=== PATIENT | male | born 1985 | race Hispanic/Latino ===

== ENCOUNTER 2022-01-15 12:47 | Inpatient (IN) | payer OTHER ==
--- NOTE | 2022-01-15 12:49 | ERPHSYRPT ---
- History of Present Illness Time Seen by Provider: 01/15/22 12:49 Historian: patient Exam Limitations: no limitations Physician History: This is a 36-year-old male who is had no prior abdominal surgeries and presents with abdominal pain. It is generalized but worse in the bilateral upper quadrants. He did vomit this morning. Patient states that he has had a history of pancreatitis in the past. Although he is on some medication to help him stop drinking alcohol, he did state that he had "2 beers a couple days ago". Patient does not recall the name of a doctor that he had seen in [facility] but he does state that he was traveling from his home in [facility] to [facility] to go to the emergency department. However, when he told his wildlife conservation officer, who he was supposed to meet with today, that he was having abdominal pain, he was told to come to the emergency department so he came to the closest emergency facility. He denies chest pain. He denies shortness of breath. Timing/Duration: week(s), intermittent, worse Quality: aching, pressure Abdominal Pain Onset Location: RUQ, LUQ, epigastric, generalized abdomen Pain Radiation: no radiation Severity of Pain-Max: moderate Severity of Pain-Current: moderate Modifying Factors: Improves With: vomiting Associated Symptoms: nausea, vomiting, No chest pain, No shortness of breath Previous symptoms: same symptoms as today Allergies/Adverse Reactions: No Known Drug Allergies Allergy (Verified 01/15/22 13:05) Home Medications: Acamprosate Calcium 333 mg PO DAILY 01/15/22 [History] Folic Acid 1 mg [Folate 1 mg] 1 mg PO DAILY 01/15/22 [History] Lansoprazole 15 mg PO BID 01/15/22 [History] dilTIAZem HCL [Tiadylt ER] 180 mg PO DAILY 01/15/22 [History] Travel Risk - International Travel Have you traveled outside of the country in past 3 weeks: No - Coronavirus Screening Are you exhibiting any of the following symptoms?: No Close contact with a COVID-19 positive Pt in past 14-21 Days: No - Review of Systems Constitutional: No Symptoms Eyes: No Symptoms Ears, Nose, & Throat: No Symptoms Respiratory: No Symptoms Cardiac: No Symptoms Abdominal/Gastrointestinal: Abdominal Pain, Nausea, Vomiting, No Diarrhea, No Constipation Genitourinary Symptoms: No Symptoms Musculoskeletal: No Symptoms Skin: No Symptoms Neurological: No Symptoms Psychological: No Symptoms Endocrine: No Symptoms Hematologic/Lymphatic: No Symptoms Immunological/Allergic: No Symptoms All Other Systems: Reviewed and Negative - Past Medical History Pertinent Past Medical History: Yes - Nursing Vital Signs Nursing Vital Signs: Initial Vital Signs Temperature 99.4 F 01/15/22 12:54 Pulse Rate 88 01/15/22 12:54 Respiratory Rate 18 01/15/22 12:54 Blood Pressure 179/121 01/15/22 12:54 O2 Sat by Pulse Oximetry 99 01/15/22 12:54 Pain Scale Pain Intensity 6 - Physical Exam General Appearance: no apparent distress, alert, anxiety Eye Exam: PERRL/EOMI, eyes nml inspection Ears, Nose, Throat Exam: normal ENT inspection, moist mucous membranes Neck Exam: normal inspection, non-tender, supple, full range of motion Respiratory Exam: normal breath sounds, lungs clear, airway intact, No chest tenderness, No respiratory distress Cardiovascular Exam: regular rate/rhythm, normal heart sounds, normal peripheral pulses Gastrointestinal/Abdomen Exam: soft, normal bowel sounds, tenderness (Mild and diffuse with palpation), guarding (Mild and diffuse with palpation), No rebound Rectal Exam: not done Back Exam: normal inspection, normal range of motion, No CVA tenderness, No vert ebral tenderness Extremity Exam: normal inspection, normal range of motion, pelvis stable Neurologic Exam: alert, oriented x 3, cooperative, resourcing consultant II-XII nml as tested, normal mood/affect, nml cerebellar function, nml station & gait, sensation nml Skin Exam: normal color, warm, dry Lymphatic Exam: No adenopathy SpO2 Interpretation: normal O2 Delivery: Room Air - Course Nursing assessment & vital signs reviewed: Yes EKG Interpreted by Me: RATE (80), Sinus Rhythm, NORMAL AXIS, NORMAL INTERVALS, NORMAL QRS, NORMAL ST-T, Other (No acute ischemic changes on today's EKG. No comparison EKG available.) Ordered Tests: Active Orders 24 hr Category Date Time Status Clean Catch Urine Specimen STAT Care 01/15/22 13:11 Active IV Insertion STAT Care 01/15/22 13:11 Active ABDOMEN AND PELVIS W/0 CONTRAS [CT] Stat Exams 01/15/22 13:11 Completed AMYLASE Stat Lab 01/15/22 13:20 Completed Alcohol [ETHYL ALCOHOL] Stat Lab 01/15/22 13:20 Completed CBC W DIFF Stat Lab 01/15/22 13:20 Completed CMP Stat Lab 01/15/22 13:20 Completed LIPASE Stat Lab 01/15/22 13:20 Completed Lactic Acid Stat Lab 01/15/22 13:18 Completed Urine Triage Profile Stat Lab 01/15/22 13:34 Completed Transfer Order Routine Transfer 01/15/22 Ordered Medication Summary Discontinued Medications Generic Name Dose Route Start Last Admin Trade Name Laura PRN Reason Stop Dose Admin Hydromorphone HCl 1 mg 01/15/22 13:11 01/15/22 13:36 Hydromorphone 1 Mg/1ml Inj 1 Mg/Ml Syringe IV 01/15/22 13:12 1 mg STAT ONE Administration Hydromorphone HCl Confirm 01/15/22 13:35 Hydromorphone 1 Mg/1ml Inj 1 Mg/Ml Syringe Administered 01/15/22 13:36 Dose 1 mg .ROUTE .STK-MED ONE Sodium Chloride 1,000 mls @ 999 mls/hr 01/15/22 13:11 01/15/22 14:41 Sodium Chloride 0.9% 1000 Ml IV 01/15/22 14:11 Infused .Q1H1M STA Infusion Sodium Chloride Confirm 01/15/22 13:26 Sodium Chloride 0.9% 1000 Ml Administered 01/15/22 13:27 Dose 1,000 mls @ ud .ROUTE .STK-MED ONE Ondansetron HCl 4 mg 01/15/22 13:11 01/15/22 13:35 Ondansetron Hcl 4 Mg/2 Ml Vial IV 01/15/22 13:12 4 mg STAT ONE Administration Ondansetron HCl Confirm 01/15/22 13:35 Ondansetron Hcl 4 Mg/2 Ml Vial Administered 01/15/22 13:36 Dose 4 mg .ROUTE .STK-MED ONE Lab/Rad Data: Laboratory Result Diagrams 01/15/22 13:20 01/15/22 13:20 Laboratory Results 01/15/22 01/15/22 01/15/22 Range/Units 13:34 13:20 13:20 WBC (4.0-10.5) K/mm3 RBC (4.1-5.6) M/mm3 Hgb (12.5-18.0) gm/dl Hct (42-50) % MCV (78-100) fl MCH (26-32) pg MCHC (32-36) g/dl RDW (11.5-14.0) % Plt Count (150-450) K/mm3 MPV (7.5-11.0) fl Gran % (36.0-66.0) % Eos # (Auto) (0-0.5) Absolute Lymphs (auto) (1.0-4.6) Absolute Monos (auto) (0.0-1.3) Lymphocytes % (24.0-44.0) % Monocytes % (0.0-12.0) % Eosinophils % (0.00-5.0) % Basophils % (0.0-0.4) % Absolute Granulocytes (1.4-6.9) Basophils # (0-0.4) Sodium 141 (137-145) mmol/L Potassium 3.6 (3.5-5.1) mmol/L Chloride 102 (98-107) mmol/L Carbon Dioxide 24 (22-30) mmol/L Anion Gap 17.7 H (5-15) MEQ/L BUN 8 L (9-20) mg/dL Creatinine 0.57 L (0.66-1.25) mg/dL Estimated GFR > 60.0 ML/MIN Glucose 107 H (74-106) mg/dL Lactic Acid (0.4-2.0) Calcium 8.6 (8.4-10.2) mg/dL Total Bilirubin 0.70 (0.2-1.3) mg/dL AST 69 H (17-59) U/L ALT 36 (0-50) U/L Alkaline Phosphatase 102 (38-126) U/L Serum Total Protein 7.7 (6.3-8.2) g/dL Albumin 4.3 (3.5-5.0) g/dL Amylase 119 H (30-110) U/L Lipase 1111 H (23-300) U/L Urine Opiates Level NEGATIVE (NEGATIVE) Ur Methadone NEGATIVE (NEGATIVE) Urine Barbiturates NEGATIVE (NEGATIVE) Ur Phencyclidine (PCP) NEGATIVE (NEGATIVE) Urine Amphetamine NEGATIVE (NEGATIVE) U Benzodiazepine Level NEGATIVE (NEGATIVE) Urine Cocaine NEGATIVE (NEGATIVE) Urine Marijuana (THC) POSITIVE (NEGATIVE) Ethyl Alcohol 215 H (0-10) mg/dL 01/15/22 01/15/22 Range/Units 13:20 13:18 WBC 6.4 (4.0-10.5) K/mm3 RBC 4.28 (4.1-5.6) M/mm3 Hgb 14.1 (12.5-18.0) gm/dl Hct 40.4 L (42-50) % MCV 94.4 (78-100) fl MCH 32.9 H (26-32) pg MCHC 34.9 (32-36) g/dl RDW 13.0 (11.5-14.0) % Plt Count 251 (150-450) K/mm3 MPV 9.9 (7.5-11.0) fl Gran % 61.7 (36.0-66.0) % Eos # (Auto) 0.03 (0-0.5) Absolute Lymphs (auto) 1.99 (1.0-4.6) Absolute Monos (auto) 0.40 (0.0-1.3) Lymphocytes % 31.0 (24.0-44.0) % Monocytes % 6.2 (0.0-12.0) % Eosinophils % 0.5 (0.00-5.0) % Basophils % 0.6 (0.0-0.4) % Absolute Granulocytes 3.95 (1.4-6.9) Basophils # 0.04 (0-0.4) Sodium (137-145) mmol/L Potassium (3.5-5.1) mmol/L Chloride (98-107) mmol/L Carbon Dioxide (22-30) mmol/L Anion Gap (5-15) MEQ/L BUN (9-20) mg/dL Creatinine (0.66-1.25) mg/dL Estimated GFR ML/MIN Glucose (74-106) mg/dL Lactic Acid 1.5 (0.4-2.0) Calcium (8.4-10.2) mg/dL Total Bilirubin (0.2-1.3) mg/dL AST (17-59) U/L ALT (0-50) U/L Alkaline Phosphatase (38-126) U/L Serum Total Protein (6.3-8.2) g/dL Albumin (3.5-5.0) g/dL Amylase (30-110) U/L Lipase (23-300) U/L Urine Opiates Level (NEGATIVE) Ur Methadone (NEGATIVE) Urine Barbiturates (NEGATIVE) Ur Phencyclidine (PCP) (NEGATIVE) Urine Amphetamine (NEGATIVE) U Benzodiazepine Level (NEGATIVE) Urine Cocaine (NEGATIVE) Urine Marijuana (THC) (NEGATIVE) Ethyl Alcohol (0-10) mg/dL - Progress Progress: improved, pain not gone completely, re-examined Progress Note: 01/15/22 15:06 CAT scan of the abdomen pelvis without contrast shows acute pancreatitis at the uncinate process. This may be recurrent versus residual. There is adjacent duodenal wall thickening. This is presumed to be reactive. Discussed with Dr.: Junie Counseled pt/family regarding: lab results, diagnosis, need for follow-up, rad results - Departure Departure Disposition: Observation Clinical Impression: Acute pancreatitis, Alcohol intoxication Condition: Stable Critical Care Time: No Referrals: JAZ MELLO [ACTIVE STAFF] - Follow up/PCP as directed
[2022-01-15] MEDS ORDERED: Zofran 4 MG/2 ML VIAL IV ONE (13:11)
[2022-01-15] MEDS ORDERED: Hydromorphone 1 mg/ml Injection IV ONE ×2 (13:11→16:21)
[2022-01-15] MEDS ORDERED: Sodium Chloride 0.9% 1000 ML 1,000 ML IV STA (13:11)
[2022-01-15] MEDS ORDERED: Sodium Chloride 0.9% 1000 ML 1,000 ML ONE (13:26)
[2022-01-15 13:35] LABS: Absolute Neutrophil Ct (ANC) 3.95 (1.4-6.9); Basophil (Absolute #) 0.04 (0-0.4); Eosinophil % 0.5 % (0.00-5.0); Eosinophil (Absolute #) 0.03 (0-0.5); Hematocrit 40.4 % (42-50); Hemoglobin 14.1 gm/dl (12.5-18.0); Lymphocyte (Absolute #) 1.99 (1.0-4.6); Mean Cell Volume 94.4 fl (78-100); Mean Corpuscular Hemoglobin 32.9 pg (26-32); Mean Corpuscular Hgb Concent. 34.9 g/dl (32-36); Mean Platelet Volume 9.9 fl (7.5-11.0); Monocytes % 6.2 % (0.0-12.0); Neutrophil % 61.7 % (36.0-66.0); Platelet Count 251 K/mm3 (150-450); Red Blood Count 4.28 M/mm3 (4.1-5.6); White Blood Count 6.4 K/mm3 (4.0-10.5)
[2022-01-15] MEDS ORDERED: Zofran 4 MG/2 ML VIAL ONE (13:35)
[2022-01-15] MEDS ORDERED: Hydromorphone 1 mg/ml Injection ONE ×2 (13:35→16:22)
[2022-01-15 13:45] LABS: ALBUMIN 4.3 g/dL (3.5-5.0); ALKALINE PHOSPHATASE 102 U/L (38-126); AMYLASE 119 U/L (30-110); ANION GAP 17.7 MEQ/L (5-15); BLOOD UREA NITROGEN 8 mg/dL (9-20); CHLORIDE 102 mmol/L (98-107); Calcium 8.6 mg/dL (8.4-10.2); Carbon Dioxide 24 mmol/L (22-30); Creatinine 1 0.57 mg/dL (0.66-1.25); EST GLOMERULAR FILTRATION RATE > 60.0 ML/MIN; Glucose 107 mg/dL (74-106); Potassium 3.6 mmol/L (3.5-5.1); SGOT/AST 69 U/L (17-59); SGPT/ALT 36 U/L (0-50); SODIUM 141 mmol/L (137-145); Total Protein 7.7 g/dL (6.3-8.2)
[2022-01-15 13:52] LABS: LIPASE 1111 U/L (23-300)
[2022-01-15 14:17] LABS: Barbiturate,Urine NEGATIVE (NEGATIVE); Benzodiazepine,Urine NEGATIVE (NEGATIVE); Cocaine,Urine NEGATIVE (NEGATIVE); Methadone,Urine NEGATIVE (NEGATIVE); Opiate,Urine NEGATIVE (NEGATIVE); PCP,Urine NEGATIVE (NEGATIVE); THC,Urine POSITIVE (NEGATIVE)
[2022-01-15 14:23] LABS: Amphetamine,Urine NEGATIVE (NEGATIVE)
--- NOTE | 2022-01-15 14:37 | XRAY ---
Indication: Abdomen pain and dysuria. Status post pancreatitis one month ago. Multiple contiguous axial images obtained through the abdomen and pelvis without contrast. Comparison: None Lung bases demonstrates minimal left base dependent atelectasis. Heart not enlarged. Noncontrasted stomach and bowel loops appear nonobstructed. Normal appearing appendix with tiny appendicolith near the base. No free fluid/air. Head and uncinate portion of the pancreas demonstrates moderate peripancreatic stranding favoring recurrent versus residual pancreatitis with tiny free fluid. Lesser degree pancreatitis seen of the remaining pancreas. Adjacent descending duodenal wall thickening presumed reactive. No free air. Remaining liver, gallbladder, spleen, adrenal glands, kidneys, ureters, bladder, and aorta are unremarkable for noncontrast exam. Osseous structures intact. Impression: 1. Pancreatitis as detailed with tiny free fluid. Adjacent duodenal wall thickening presumed reactive. 2. Incidental appendicolith without appendicitis.
[2022-01-15 15:44] LABS: Bacteria RARE /HPF (NEGATIVE)
[2022-01-15 15:49] LABS: Appearance CLEAR (CLEAR); Bilirubin NEGATIVE (NEGATIVE); Glucose NEGATIVE (NEGATIVE); Ketones NEGATIVE (NEGATIVE); Nitrite NEGATIVE (NEGATIVE); Protein,Urine Dip NEGATIVE (Negative); RBC NEGATIVE Ery/ul (0-5); Urine Cultured Indicated? NO; Urobilinogen 0.2 mg/dL (0-1)
[2022-01-15 15:54] LABS: Dipstick done @ ? MAIN LAB
[2022-01-15 16:35] LABS: INFLUENZA A NEGATIVE (NEGATIVE); INFLUENZA B NEGATIVE (NEGATIVE); RESPIRATORY SYNCTIAL VIRUS NEGATIVE (Negative); SARS-CoV-2 Xpert Express NEGATIVE (NEGATIVE)
[2022-01-15] MEDS ORDERED: Hydromorphone 1 mg/ml Injection IV PRN (17:30)
[2022-01-15] MEDS: Sodium Chloride 0.9% 1000 ML 1,000 ML IV SCH ×2 (18:00→23:52)
[2022-01-15] MEDS: Ativan 2 MG/1 ML VIAL IV PRN ×2 (18:00→23:47)
[2022-01-15] MEDS ORDERED: Cardizem CD 180 MG ONE (18:38)
[2022-01-15] MEDS: DILAUDID 1 MG/1ML PCA IV PRN (18:41)
[2022-01-15] MEDS: APRESOLINE 20 MG/ML INJ IV PRN (21:21)
[2022-01-15] MEDS: Zofran 4 MG/2 ML VIAL IV PRN (23:47)
[2022-01-16] MEDS: Ativan 2 MG/1 ML VIAL IV PRN ×2 (04:31→07:37)
[2022-01-16 04:48] LABS: Absolute Neutrophil Ct (ANC) 7.23 (1.4-6.9); Basophil (Absolute #) 0.03 (0-0.4); Eosinophil % 0.4 % (0.00-5.0); Eosinophil (Absolute #) 0.04 (0-0.5); Hemoglobin 13.1 gm/dl (12.5-18.0); Lymphocyte (Absolute #) 1.13 (1.0-4.6); Lymphocytes % 12.3 % (24.0-44.0); Mean Cell Volume 96.4 fl (78-100); Mean Corpuscular Hemoglobin 33.2 pg (26-32); Mean Corpuscular Hgb Concent. 34.5 g/dl (32-36); Mean Platelet Volume 9.7 fl (7.5-11.0); Monocyte (Absolute #) 0.73 (0.0-1.3); Platelet Count 194 K/mm3 (150-450); Red Blood Count 3.94 M/mm3 (4.1-5.6); White Blood Count 9.2 K/mm3 (4.0-10.5)
[2022-01-16 05:16] LABS: AMYLASE 177 U/L (30-110); ETHYL ALCOHOL < 10 mg/dL (0-10); LIPASE 1725 U/L (23-300)
[2022-01-16 05:17] LABS: ALBUMIN 3.5 g/dL (3.5-5.0); ALKALINE PHOSPHATASE 93 U/L (38-126); ANION GAP 13.8 MEQ/L (5-15); BLOOD UREA NITROGEN 5 mg/dL (9-20); CHLORIDE 103 mmol/L (98-107); Calcium 7.9 mg/dL (8.4-10.2); Carbon Dioxide 22 mmol/L (22-30); Creatinine 1 0.54 mg/dL (0.66-1.25); EST GLOMERULAR FILTRATION RATE > 60.0 ML/MIN; Glucose 94 mg/dL (74-106); Potassium 3.4 mmol/L (3.5-5.1); SGOT/AST 49 U/L (17-59); SGPT/ALT 28 U/L (0-50); SODIUM 135 mmol/L (137-145); Total Protein 6.7 g/dL (6.3-8.2)
[2022-01-16] MEDS: Sodium Chloride 0.9% 1000 ML 1,000 ML IV SCH ×3 (06:08→19:19)
--- NOTE | 2022-01-16 08:38 | PCM.HP ---
History of Present Illness - Chief Complaint Chief Complaint: Pancreatitis History of Present Illness: is a 36 year old male with no local physician, he arrived to the ER yesterday c/o abd pain, history of choronic alcoholism and recurrent pancreatitis, has been admitted for pancreatitis. currently on CIWA protocol and shows some signs of alcohol withdrawal, states he quit drinking whiskey around 2 months ago but drinks beer regularly. - Review of Systems Constitutional: No Fever, No Chills Respiratory: No Cough, No Short Of Breath Cardiac: No Chest Pain, No Edema, No Syncope Abdominal/Gastrointestinal: Abdominal Pain, Nausea, Vomiting, No Diarrhea, No Constipation Genitourinary Symptoms: No Dysuria Skin: No Rash All Other Systems: Reviewed and Negative Medications & Allergies Home Medications: Home Medication List Acamprosate Calcium 666 mg PO TID 01/15/22 [History Confirmed 01/15/22] Folic Acid 1 mg [Folate 1 mg] 1 mg PO DAILY 01/15/22 [History Confirmed 01/15/22] Lansoprazole 30 mg PO BID 01/15/22 [History Confirmed 01/15/22] Losartan Potassium 50 mg [Cozaar 50 MG] 50 mg PO DAILY 01/15/22 [History Confirmed 01/15/22] dilTIAZem HCL [Tiadylt ER] 180 mg PO HS 01/15/22 [History Confirmed 01/15/22] Allergies/Adverse Reactions: Allergies Allergy/AdvReac Type Severity Reaction Status Date / Time No Known Drug Allergies Allergy Verified 01/15/22 13:05 - Past Medical History Past Medical History: Yes Neurological History: No Pertinent History ENT History: No Pertinent History Cardiac History: Hypertension Respiratory History: No Pertinent History Endocrine Medical History: No Pertinent History Musculoskelatal History: Fractures GI Medical History: Pancreatitis History: No Pertinent History Pyscho-Social History: No Pertinent History Male Reproductive Disorders: No Pertinent History - Past Surgical History Past Surgical History: Yes Neuro Surgical History: No Pertinent History Cardiac History: No Pertinent History Respiratory Surgery: No Pertinent History GI Surgical History: No Pertinent History Genitourinary Surgical Hx: No Pertinent History Musculskeletal Surgical Hx: Orthopedic Surgery Male Surgical History: No Pertinent History Other Surgical History: left fibula repair-plate and screws. left upper arm surgery - Social History Smoking Status: Former smoker Exposure to second hand smoke: Yes Alcohol: Heavy Drug Use: none - Physical Exam Vital Signs: Vital Signs - 24 hr Temp Pulse Resp BP BP Pulse Ox 01/16/22 07:37 97 H 01/16/22 05:00 98.2 F 99 H 19 161/99 98 01/16/22 00:14 98.6 F 121 H 16 157/93 98 01/15/22 23:47 115 H 22 158/92 01/15/22 21:58 158/90 01/15/22 20:05 98.2 F 82 17 174/109 97 01/15/22 19:04 95 01/15/22 18:41 98 01/15/22 17:39 98.9 F 76 20 213/128 98 01/15/22 17:38 98.9 F 76 20 213/128 98 01/15/22 17:21 68 16 170/110 98 01/15/22 16:00 70 166/110 97 01/15/22 15:03 69 14 153/105 98 01/15/22 14:00 67 168/99 99 01/15/22 13:52 65 176/117 100 01/15/22 12:54 99.4 F 88 18 179/121 99 General Appearance: mild distress (appears to have some pain) Neurologic Exam: alert, oriented x 3 Respiratory Exam: normal breath sounds, lungs clear, No respiratory distress Cardiovascular Exam: regular rate/rhythm, normal heart sounds, normal peripheral pulses Gastrointestinal/Abdomen Exam: soft, tenderness (epigastric), No guarding, No rebound Extremity Exam: normal inspection, normal range of motion, pelvis stable Skin Exam: normal color, warm, dry, No rash Results - Labs Lab/Micro Results: Lab Results-Last 24 Hours 01/15/22 01/15/22 01/15/22 Range/Units 13:18 13:20 13:20 WBC 6.4 (4.0-10.5) K/mm3 RBC 4.28 (4.1-5.6) M/mm3 Hgb 14.1 (12.5-18.0) gm/dl Hct 40.4 L (42-50) % MCV 94.4 (78-100) fl MCH 32.9 H (26-32) pg MCHC 34.9 (32-36) g/dl RDW 13.0 (11.5-14.0) % Plt Count 251 (150-450) K/mm3 MPV 9.9 (7.5-11.0) fl Gran % 61.7 (36.0-66.0) % Eos # (Auto) 0.03 (0-0.5) Absolute Lymphs (auto) 1.99 (1.0-4.6) Absolute Monos (auto) 0.40 (0.0-1.3) Lymphocytes % 31.0 (24.0-44.0) % Monocytes % 6.2 (0.0-12.0) % Eosinophils % 0.5 (0.00-5.0) % Basophils % 0.6 (0.0-0.4) % Absolute Granulocytes 3.95 (1.4-6.9) Basophils # 0.04 (0-0.4) Sodium 141 (137-145) mmol/L Potassium 3.6 (3.5-5.1) mmol/L Chloride 102 (98-107) mmol/L Carbon Dioxide 24 (22-30) mmol/L Anion Gap 17.7 H (5-15) MEQ/L BUN 8 L (9-20) mg/dL Creatinine 0.57 L (0.66-1.25) mg/dL Estimated GFR > 60.0 ML/MIN Glucose 107 H (74-106) mg/dL POC Glucometer (74 to 106) mg/dL Lactic Acid 1.5 (0.4-2.0) Calcium 8.6 (8.4-10.2) mg/dL Total Bilirubin 0.70 (0.2-1.3) mg/dL AST 69 H (17-59) U/L ALT 36 (0-50) U/L Alkaline Phosphatase 102 (38-126) U/L Serum Total Protein 7.7 (6.3-8.2) g/dL Albumin 4.3 (3.5-5.0) g/dL Amylase 119 H (30-110) U/L Lipase 1111 H (23-300) U/L Urinalys Dipstick Clnc Urine Color (YELLOW) Urine Appearance (CLEAR) Urine pH (5-6) Ur Specific [place] (1.005-1.025) POC Urine Protein Conf (Negative) Urine Ketones (NEGATIVE) Urine Nitrite (NEGATIVE) Urine Bilirubin (NEGATIVE) Urine Urobilinogen (0-1) mg/dL Urine Leukocytes (NEGATIVE) Urine WBC (Auto) (0-5) /HPF Urine Bacteria (Auto) (NEGATIVE) /HPF Urine RBC (0-5) Roland/ul Ur Culture Indicated? Urine Glucose (NEGATIVE) mg/dL Urine Opiates Level (NEGATIVE) Ur Methadone (NEGATIVE) Urine Barbiturates (NEGATIVE) Ur Phencyclidine (PCP) (NEGATIVE) Urine Amphetamine (NEGATIVE) U Benzodiazepine Level (NEGATIVE) Urine Cocaine (NEGATIVE) Urine Marijuana (THC) (NEGATIVE) Ethyl Alcohol (0-10) mg/dL Influenza Type A Ag (NEGATIVE) Influenza Type B Ag (NEGATIVE) RSV (PCR) (Negative) SARS-CoV-2 (PCR) (NEGATIVE) 01/15/22 01/15/22 01/15/22 Range/Units 13:20 13:34 13:34 WBC (4.0-10.5) K/mm3 RBC (4.1-5.6) M/mm3 Hgb (12.5-18.0) gm/dl Hct (42-50) % MCV (78-100) fl MCH (26-32) pg MCHC (32-36) g/dl RDW (11.5-14.0) % Plt Count (150-450) K/mm3 MPV (7.5-11.0) fl Gran % (36.0-66.0) % Eos # (Auto) (0-0.5) Absolute Lymphs (auto) (1.0-4.6) Absolute Monos (auto) (0.0-1.3) Lymphocytes % (24.0-44.0) % Monocytes % (0.0-12.0) % Eosinophils % (0.00-5.0) % Basophils % (0.0-0.4) % Absolute Granulocytes (1.4-6.9) Basophils # (0-0.4) Sodium (137-145) mmol/L Potassium (3.5-5.1) mmol/L Chloride (98-107) mmol/L Carbon Dioxide (22-30) mmol/L Anion Gap (5-15) MEQ/L BUN (9-20) mg/dL Creatinine (0.66-1.25) mg/dL Estimated GFR ML/MIN Glucose (74-106) mg/dL POC Glucometer (74 to 106) mg/dL Lactic Acid (0.4-2.0) Calcium (8.4-10.2) mg/dL Total Bilirubin (0.2-1.3) mg/dL AST (17-59) U/L ALT (0-50) U/L Alkaline Phosphatase (38-126) U/L Serum Total Protein (6.3-8.2) g/dL Albumin (3.5-5.0) g/dL Amylase (30-110) U/L Lipase (23-300) U/L Urinalys Dipstick Clnc MAIN LAB Urine Color YELLOW (YELLOW) Urine Appearance CLEAR (CLEAR) Urine pH 7.0 (5-6) Ur Specific [place] 1.010 (1.005-1.025) POC Urine Protein Conf NEGATIVE (Negative) Urine Ketones NEGATIVE (NEGATIVE) Urine Nitrite NEGATIVE (NEGATIVE) Urine Bilirubin NEGATIVE (NEGATIVE) Urine Urobilinogen 0.2 (0-1) mg/dL Urine Leukocytes NEGATIVE (NEGATIVE) Urine WBC (Auto) NONE (0-5) /HPF Urine Bacteria (Auto) RARE (NEGATIVE) /HPF Urine RBC NEGATIVE (0-5) Roland/ul Ur Culture Indicated? NO Urine Glucose NEGATIVE (NEGATIVE) mg/dL Urine Opiates Level NEGATIVE (NEGATIVE) Ur Methadone NEGATIVE (NEGATIVE) Urine Barbiturates NEGATIVE (NEGATIVE) Ur Phencyclidine (PCP) NEGATIVE (NEGATIVE) Urine Amphetamine NEGATIVE (NEGATIVE) U Benzodiazepine Level NEGATIVE (NEGATIVE) Urine Cocaine NEGATIVE (NEGATIVE) Urine Marijuana (THC) POSITIVE (NEGATIVE) Ethyl Alcohol 215 H (0-10) mg/dL Influenza Type A Ag (NEGATIVE) Influenza Type B Ag (NEGATIVE) RSV (PCR) (Negative) SARS-CoV-2 (PCR) (NEGATIVE) 01/15/22 01/15/22 01/16/22 Range/Units 15:52 23:42 04:35 WBC 9.2 (4.0-10.5) K/mm3 RBC 3.94 L (4.1-5.6) M/mm3 Hgb 13.1 (12.5-18.0) gm/dl Hct 38.0 L (42-50) % MCV 96.4 (78-100) fl MCH 33.2 H (26-32) pg MCHC 34.5 (32-36) g/dl RDW 13.0 (11.5-14.0) % Plt Count 194 (150-450) K/mm3 MPV 9.7 (7.5-11.0) fl Gran % 79.0 H (36.0-66.0) % Eos # (Auto) 0.04 (0-0.5) Absolute Lymphs (auto) 1.13 (1.0-4.6) Absolute Monos (auto) 0.73 (0.0-1.3) Lymphocytes % 12.3 L (24.0-44.0) % Monocytes % 8.0 (0.0-12.0) % Eosinophils % 0.4 (0.00-5.0) % Basophils % 0.3 (0.0-0.4) % Absolute Granulocytes 7.23 H (1.4-6.9) Basophils # 0.03 (0-0.4) Sodium (137-145) mmol/L Potassium (3.5-5.1) mmol/L Chloride (98-107) mmol/L Carbon Dioxide (22-30) mmol/L Anion Gap (5-15) MEQ/L BUN (9-20) mg/dL Creatinine (0.66-1.25) mg/dL Estimated GFR ML/MIN Glucose (74-106) mg/dL POC Glucometer 92 (74 to 106) mg/dL Lactic Acid (0.4-2.0) Calcium (8.4-10.2) mg/dL Total Bilirubin (0.2-1.3) mg/dL AST (17-59) U/L ALT (0-50) U/L Alkaline Phosphatase (38-126) U/L Serum Total Protein (6.3-8.2) g/dL Albumin (3.5-5.0) g/dL Amylase (30-110) U/L Lipase (23-300) U/L Urinalys Dipstick Clnc Urine Color (YELLOW) Urine Appearance (CLEAR) Urine pH (5-6) Ur Specific [place] (1.005-1.025) POC Urine Protein Conf (Negative) Urine Ketones (NEGATIVE) Urine Nitrite (NEGATIVE) Urine Bilirubin (NEGATIVE) Urine Urobilinogen (0-1) mg/dL Urine Leukocytes (NEGATIVE) Urine WBC (Auto) (0-5) /HPF Urine Bacteria (Auto) (NEGATIVE) /HPF Urine RBC (0-5) Roland/ul Ur Culture Indicated? Urine Glucose (NEGATIVE) mg/dL Urine Opiates Level (NEGATIVE) Ur Methadone (NEGATIVE) Urine Barbiturates (NEGATIVE) Ur Phencyclidine (PCP) (NEGATIVE) Urine Amphetamine (NEGATIVE) U Benzodiazepine Level (NEGATIVE) Urine Cocaine (NEGATIVE) Urine Marijuana (THC) (NEGATIVE) Ethyl Alcohol (0-10) mg/dL Influenza Type A Ag NEGATIVE (NEGATIVE) Influenza Type B Ag NEGATIVE (NEGATIVE) RSV (PCR) NEGATIVE (Negative) SARS-CoV-2 (PCR) NEGATIVE (NEGATIVE) 01/16/22 01/16/22 Range/Units 04:35 04:35 WBC (4.0-10.5) K/mm3 RBC (4.1-5.6) M/mm3 Hgb (12.5-18.0) gm/dl Hct (42-50) % MCV (78-100) fl MCH (26-32) pg MCHC (32-36) g/dl RDW (11.5-14.0) % Plt Count (150-450) K/mm3 MPV (7.5-11.0) fl Gran % (36.0-66.0) % Eos # (Auto) (0-0.5) Absolute Lymphs (auto) (1.0-4.6) Absolute Monos (auto) (0.0-1.3) Lymphocytes % (24.0-44.0) % Monocytes % (0.0-12.0) % Eosinophils % (0.00-5.0) % Basophils % (0.0-0.4) % Absolute Granulocytes (1.4-6.9) Basophils # (0-0.4) Sodium 135 L (137-145) mmol/L Potassium 3.4 L (3.5-5.1) mmol/L Chloride 103 (98-107) mmol/L Carbon Dioxide 22 (22-30) mmol/L Anion Gap 13.8 (5-15) MEQ/L BUN 5 L (9-20) mg/dL Creatinine 0.54 L (0.66-1.25) mg/dL Estimated GFR > 60.0 ML/MIN Glucose 94 (74-106) mg/dL POC Glucometer (74 to 106) mg/dL Lactic Acid (0.4-2.0) Calcium 7.9 L (8.4-10.2) mg/dL Total Bilirubin 1.20 (0.2-1.3) mg/dL AST 49 (17-59) U/L ALT 28 (0-50) U/L Alkaline Phosphatase 93 (38-126) U/L Serum Total Protein 6.7 (6.3-8.2) g/dL Albumin 3.5 (3.5-5.0) g/dL Amylase 177 H (30-110) U/L Lipase 1725 H (23-300) U/L Urinalys Dipstick Clnc Urine Color (YELLOW) Urine Appearance (CLEAR) Urine pH (5-6) Ur Specific [place] (1.005-1.025) POC Urine Protein Conf (Negative) Urine Ketones (NEGATIVE) Urine Nitrite (NEGATIVE) Urine Bilirubin (NEGATIVE) Urine Urobilinogen (0-1) mg/dL Urine Leukocytes (NEGATIVE) Urine WBC (Auto) (0-5) /HPF Urine Bacteria (Auto) (NEGATIVE) /HPF Urine RBC (0-5) Roland/ul Ur Culture Indicated? Urine Glucose (NEGATIVE) mg/dL Urine Opiates Level (NEGATIVE) Ur Methadone (NEGATIVE) Urine Barbiturates (NEGATIVE) Ur Phencyclidine (PCP) (NEGATIVE) Urine Amphetamine (NEGATIVE) U Benzodiazepine Level (NEGATIVE) Urine Cocaine (NEGATIVE) Urine Marijuana (THC) (NEGATIVE) Ethyl Alcohol < 10 (0-10) mg/dL Influenza Type A Ag (NEGATIVE) Influenza Type B Ag (NEGATIVE) RSV (PCR) (Negative) SARS-CoV-2 (PCR) (NEGATIVE) - Radiology Impressions Radiology Exams & Impressions: Radiology Procedures Category Date Time Status ABDOMEN AND PELVIS W/0 CONTRAS [CT] Stat Exams 01/15/22 13:11 Completed Assessment/Plan (1) Acute alcoholic pancreatitis Current Visit: Yes Status: Acute Assessment & Plan: keep NPO, monitor enzymes which are still significantly elevated, has webbing supervisor and nausea meds with hydration ordered Code(s): K85.20 - ALCOHOL INDUCED ACUTE PANCREATITIS WITHOUT NECROSIS OR INFCT (2) Alcohol withdrawal Current Visit: Yes Status: Acute Assessment & Plan: ativan detox protocol being followed Code(s): F10.239 - ALCOHOL DEPENDENCE WITH WITHDRAWAL, UNSPECIFIED
[2022-01-16] MEDS: Protonix 40MG Tablet PO SCH (09:39)
[2022-01-16] MEDS: FOLATE 1 MG PO SCH (09:39)
[2022-01-16] MEDS: Cozaar 50 MG PO SCH (09:39)
[2022-01-16] MEDS: ENOXAPARIN SODIUM SQ SCH (09:39)
[2022-01-16] MEDS ORDERED: Ativan 2 MG/1 ML VIAL IV PRN (09:40)
[2022-01-16] MEDS ORDERED: MEDICATION INTERVENTION MC SCH (09:45)
[2022-01-16] MEDS ORDERED: ACAMPROSATE CALCIUM 333 MG PO SCH (10:00)
[2022-01-16] MEDS ORDERED: LANSOPRAZOLE 15 MG PO SCH (10:00)
[2022-01-16] MEDS: APRESOLINE 20 MG/ML INJ IV PRN (12:56)
[2022-01-16] MEDS ORDERED: Cardizem CD 180 MG PO ONE (18:30)
[2022-01-16] MEDS: Zofran 4 MG/2 ML VIAL IV PRN (19:36)
[2022-01-16] MEDS: Cardizem CD 180 MG PO SCH (21:27)
[2022-01-16] MEDS ORDERED: DILTIAZEM HCL 180 MG PO SCH (22:00)
[2022-01-16] MEDS: TYLENOL 325 MG PO PRN (23:23)
[2022-01-17] MEDS: Zofran 4 MG/2 ML VIAL IV PRN ×4 (01:14→21:16)
[2022-01-17] MEDS: Sodium Chloride 0.9% 1000 ML 1,000 ML IV SCH ×4 (01:41→21:26)
[2022-01-17 05:59] LABS: Absolute Neutrophil Ct (ANC) 7.94 (1.4-6.9); Basophil (Absolute #) 0.01 (0-0.4); Eosinophil % 2.4 % (0.00-5.0); Eosinophil (Absolute #) 0.24 (0-0.5); Hematocrit 38.2 % (42-50); Hemoglobin 13.1 gm/dl (12.5-18.0); Lymphocyte (Absolute #) 1.22 (1.0-4.6); Lymphocytes % 12.1 % (24.0-44.0); Mean Corpuscular Hemoglobin 33.2 pg (26-32); Mean Corpuscular Hgb Concent. 34.3 g/dl (32-36); Monocyte (Absolute #) 0.71 (0.0-1.3); Neutrophil % 78.4 % (36.0-66.0); Platelet Count 153 K/mm3 (150-450); Red Blood Count 3.94 M/mm3 (4.1-5.6); White Blood Count 10.1 K/mm3 (4.0-10.5)
[2022-01-17 06:15] LABS: ALKALINE PHOSPHATASE 85 U/L (38-126); AMYLASE 181 U/L (30-110); ANION GAP 14.5 MEQ/L (5-15); CHLORIDE 102 mmol/L (98-107); Calcium 8.3 mg/dL (8.4-10.2); Carbon Dioxide 21 mmol/L (22-30); Creatinine 1 0.51 mg/dL (0.66-1.25); EST GLOMERULAR FILTRATION RATE > 60.0 ML/MIN; Glucose 80 mg/dL (74-106); LIPASE 1384 U/L (23-300); Potassium 3.6 mmol/L (3.5-5.1); SGOT/AST 36 U/L (17-59); SGPT/ALT 22 U/L (0-50); SODIUM 134 mmol/L (137-145); Total Protein 7.4 g/dL (6.3-8.2)
[2022-01-17 06:21] LABS: BLOOD UREA NITROGEN < 2 mg/dL (9-20)
[2022-01-17] MEDS: Protonix 40MG Tablet PO SCH (09:40)
[2022-01-17] MEDS: Cozaar 50 MG PO SCH (09:40)
[2022-01-17] MEDS: FOLATE 1 MG PO SCH (09:40)
[2022-01-17] MEDS: ENOXAPARIN SODIUM SQ SCH (09:41)
[2022-01-17] MEDS: NICODERM CQ 14 MG TOP SCH (14:38)
[2022-01-17] MEDS: Cardizem CD 180 MG PO SCH (21:12)
[2022-01-17] MEDS: TYLENOL 325 MG PO PRN (23:42)
[2022-01-18] MEDS: Sodium Chloride 0.9% 1000 ML 1,000 ML IV SCH ×4 (03:46→23:22)
[2022-01-18] MEDS: DILAUDID 1 MG/1ML PCA IV PRN (04:51)
[2022-01-18 05:49] LABS: Absolute Neutrophil Ct (ANC) 5.08 (1.4-6.9); Basophil (Absolute #) 0.04 (0-0.4); Eosinophil % 5.3 % (0.00-5.0); Eosinophil (Absolute #) 0.39 (0-0.5); Hemoglobin 12.6 gm/dl (12.5-18.0); Lymphocyte (Absolute #) 1.34 (1.0-4.6); Lymphocytes % 18.1 % (24.0-44.0); Mean Cell Volume 96.6 fl (78-100); Mean Corpuscular Hemoglobin 32.9 pg (26-32); Mean Corpuscular Hgb Concent. 34.1 g/dl (32-36); Mean Platelet Volume 9.6 fl (7.5-11.0); Monocyte (Absolute #) 0.55 (0.0-1.3); Monocytes % 7.4 % (0.0-12.0); Neutrophil % 68.7 % (36.0-66.0); Platelet Count 143 K/mm3 (150-450); Red Blood Count 3.83 M/mm3 (4.1-5.6); Red Cell Distribution Width 12.7 % (11.5-14.0); White Blood Count 7.4 K/mm3 (4.0-10.5)
[2022-01-18 06:18] LABS: ALKALINE PHOSPHATASE 79 U/L (38-126); AMYLASE 109 U/L (30-110); ANION GAP 20.6 MEQ/L (5-15); BLOOD UREA NITROGEN 6 mg/dL (9-20); CHLORIDE 106 mmol/L (98-107); Calcium 8.2 mg/dL (8.4-10.2); Creatinine 1 0.52 mg/dL (0.66-1.25); EST GLOMERULAR FILTRATION RATE > 60.0 ML/MIN; Glucose 52 mg/dL (74-106); LIPASE 706 U/L (23-300); Potassium 3.9 mmol/L (3.5-5.1); SGOT/AST 31 U/L (17-59); SGPT/ALT 18 U/L (0-50); SODIUM 137 mmol/L (137-145); Total Protein 7.3 g/dL (6.3-8.2)
[2022-01-18 06:21] LABS: Carbon Dioxide 14 mmol/L (22-30)
[2022-01-18] MEDS: TYLENOL 325 MG PO PRN (08:57)
[2022-01-18] MEDS: NORVASC 5 MG PO SCH (10:20)
[2022-01-18] MEDS: Cozaar 50 MG PO SCH (10:20)
[2022-01-18] MEDS: FOLATE 1 MG PO SCH (10:20)
[2022-01-18] MEDS: Protonix 40MG Tablet PO SCH (10:20)
[2022-01-18] MEDS: ENOXAPARIN SODIUM SQ SCH (10:21)
[2022-01-18] MEDS ORDERED: Sodium Chloride 0.9% 500 ML 500 ML IV SCH (10:30)
[2022-01-18] MEDS: NICODERM CQ 14 MG TOP SCH (14:31)
[2022-01-18] MEDS: Zofran 4 MG/2 ML VIAL IV PRN (19:54)
[2022-01-18] MEDS: APRESOLINE 20 MG/ML INJ IV PRN (19:54)
[2022-01-18] MEDS: Cardizem CD 180 MG PO SCH (22:00)
[2022-01-19] MEDS ORDERED: Ativan 1 MG ONE (03:38)
[2022-01-19] MEDS ORDERED: Ativan 1 MG PO PRN (03:41)
[2022-01-19 05:11] LABS: ALBUMIN 4.1 g/dL (3.5-5.0); ALKALINE PHOSPHATASE 88 U/L (38-126); ANION GAP 16.3 MEQ/L (5-15); CHLORIDE 104 mmol/L (98-107); Calcium 8.7 mg/dL (8.4-10.2); Carbon Dioxide 19 mmol/L (22-30); Creatinine 1 0.43 mg/dL (0.66-1.25); EST GLOMERULAR FILTRATION RATE > 60.0 ML/MIN; Glucose 129 mg/dL (74-106); LIPASE 686 U/L (23-300); Potassium 3.2 mmol/L (3.5-5.1); SGOT/AST 27 U/L (17-59); SGPT/ALT 17 U/L (0-50); SODIUM 136 mmol/L (137-145); Total Protein 7.8 g/dL (6.3-8.2)
[2022-01-19 05:12] LABS: Hematocrit 38.1 % (42-50); Hemoglobin 13.3 gm/dl (12.5-18.0); Mean Cell Volume 95.3 fl (78-100); Mean Corpuscular Hemoglobin 33.3 pg (26-32); Mean Corpuscular Hgb Concent. 34.9 g/dl (32-36); Mean Platelet Volume 9.8 fl (7.5-11.0); Platelet Count 165 K/mm3 (150-450); Red Cell Distribution Width 13.1 % (11.5-14.0); White Blood Count 6.8 K/mm3 (4.0-10.5)
[2022-01-19] MEDS: Sodium Chloride 0.9% 1000 ML 1,000 ML IV SCH (05:45)
[2022-01-19 05:58] LABS: BLOOD UREA NITROGEN 2 mg/dL (9-20)
[2022-01-19] MEDS: Dextrose 5% -0.45 NaCl 1000 ML 1,000 ML IV SCH (07:43)
[2022-01-19] MEDS: Hydromorphone 1 mg/ml Injection IV PRN ×4 (08:24→22:37)
[2022-01-19] MEDS: ENOXAPARIN SODIUM SQ SCH (09:44)
[2022-01-19] MEDS: NORVASC 5 MG PO SCH (09:44)
[2022-01-19] MEDS: FOLATE 1 MG PO SCH (09:44)
[2022-01-19] MEDS: Protonix 40MG Tablet PO SCH (09:44)
[2022-01-19] MEDS: Cozaar 50 MG PO SCH (09:44)
[2022-01-19] MEDS ORDERED: Miralax Powder 17GM PACKET PO SCH (10:00)
[2022-01-19] MEDS: NICODERM CQ 14 MG TOP SCH (13:13)
[2022-01-19] MEDS: Cardizem CD 180 MG PO SCH (21:42)
[2022-01-20] MEDS: Dextrose 5% -0.45 NaCl 1000 ML 1,000 ML IV SCH (02:48)
[2022-01-20] MEDS: Hydromorphone 1 mg/ml Injection IV PRN ×2 (04:33→08:41)
[2022-01-20 05:23] LABS: Absolute Neutrophil Ct (ANC) 3.92 (1.4-6.9); Basophil (Absolute #) 0.04 (0-0.4); Hematocrit 38.7 % (42-50); Hemoglobin 13.2 gm/dl (12.5-18.0); Lymphocyte (Absolute #) 1.23 (1.0-4.6); Lymphocytes % 20.4 % (24.0-44.0); Mean Cell Volume 96.5 fl (78-100); Mean Corpuscular Hemoglobin 32.9 pg (26-32); Mean Corpuscular Hgb Concent. 34.1 g/dl (32-36); Monocyte (Absolute #) 0.53 (0.0-1.3); Monocytes % 8.8 % (0.0-12.0); Neutrophil % 65.1 % (36.0-66.0); Platelet Count 197 K/mm3 (150-450); Red Blood Count 4.01 M/mm3 (4.1-5.6); Red Cell Distribution Width 13.5 % (11.5-14.0)
[2022-01-20 05:34] LABS: ALBUMIN 3.9 g/dL (3.5-5.0); ALKALINE PHOSPHATASE 78 U/L (38-126); AMYLASE 77 U/L (30-110); ANION GAP 14.5 MEQ/L (5-15); BLOOD UREA NITROGEN 4 mg/dL (9-20); CHLORIDE 104 mmol/L (98-107); Calcium 8.8 mg/dL (8.4-10.2); Carbon Dioxide 25 mmol/L (22-30); Creatinine 1 0.49 mg/dL (0.66-1.25); EST GLOMERULAR FILTRATION RATE > 60.0 ML/MIN; Glucose 120 mg/dL (74-106); LIPASE 473 U/L (23-300); Potassium 3.2 mmol/L (3.5-5.1); SGOT/AST 49 U/L (17-59); SGPT/ALT 29 U/L (0-50); SODIUM 140 mmol/L (137-145); Total Protein 7.4 g/dL (6.3-8.2)
[2022-01-20 07:23] VITALS: BP 116/77; PULSE 80; O2SAT 98
[2022-01-20] MEDS: FOLATE 1 MG PO SCH (08:07)
[2022-01-20] MEDS: Protonix 40MG Tablet PO SCH (08:07)
[2022-01-20] MEDS: NORVASC 5 MG PO SCH (08:07)
[2022-01-20] MEDS: Cozaar 50 MG PO SCH (08:08)
--- NOTE | 2022-01-20 10:19 | DS ---
DISCHARGE DIAGNOSES: 1) ACUTE ON CHRONIC PANCREATITIS. 2) ALCOHOLISM. HISTORY: The patient is a 36-year-old, male who had problems with pancreatitis previously. He has also been drinking. He has been trying to stop. He began having increasing abdominal pain. He was on his friend to [place] when they brought him to our facility. The patient was diagnosed with acute on chronic pancreatitis and admitted to the hospital for further evaluation and management. HOSPITAL COURSE: The patient was admitted to hospital. He was placed on IV fluids and NPO. He was placed on PROJECT ARCHIVIST of Dilaudid for his pain. He was treated with Ativan for potential withdrawal issues from his alcoholism. The patient had slowly gotten better. He was able to drink clear liquids on 01/18/2022 and by 01/19/2022 he was eating meals. He did get nauseated at one point and vomited when he over did it. This morning on 01/20/2022, he was again feeling well and he was felt to be ready for discharge home at this time. His laboratory studies on the day of discharge his glucose was 120, BUN 4, creatinine 0.49. Electrolytes slightly low potassium 3.2. His amylase was normal. Lipase was down to 473. His CBC was normal. The patient's initial evaluation showed him to be COVID negative. His initial amylase was slightly elevated at 119 and his lipase was 1111. His x-ray studies showed pancreatitis with chronic free fluid. The patient again at this point is felt to be ready for discharge home. He was given Zofran 4 mg every 4 hours as needed for nausea. He is to be on a low fat diet. We will contact his primary care physician in [place] and get the patient a follow up evaluation by them within the next week. He is to continue to be off of alcohol as he knows this is a trigger for his pancreatitis.
== END 2022-01-20 09:05 | disposition home or self-care (01) | DRG 440 ==
LOC: ED 12:47 → MED SURG 17:29 → OBSVTOIN 01-16 08:36
PROVIDERS: ADMIT Family Medicine; ATTEND Family Medicine
DX: K85.20 Alcohol induced acute pancreatitis without necrosis or infection (principal); F10.10 Alcohol abuse, uncomplicated; R11.2 Nausea with vomiting, unspecified; Z79.899 Other long term (current) drug therapy; Z20.828 Contact with and (suspected) exposure to other viral communicable diseases
CPT/HCPCS: 0241U; 36000; 36415; 74176; 80053; 80307; 81015; 82150; 82947; 83605; 83690; 85025; 85027; 94762; 96360; 96374; 96375; 96376; 99285; G0378; J0360; J1170; J1650; J2060; J2405; A9270-GY; G0480

== ENCOUNTER 2022-10-13 15:08 | Observation (INO) | payer OTHER ==
[2022-10-13] MEDS ORDERED: Zofran 4 MG/2 ML VIAL IV ONE (15:25)
[2022-10-13] MEDS ORDERED: Hydromorphone 1 mg/ml Injection IV ONE (15:25)
[2022-10-13] MEDS ORDERED: Sodium Chloride 0.9% 1000 ML 1,000 ML IV STA (15:25)
[2022-10-13] MEDS ORDERED: PROTONIX 40 MG IV IV ONE ×2 (15:25→15:31)
[2022-10-13] MEDS ORDERED: Sodium Chloride 0.9% 1000 ML 1,000 ML ONE ×2 (15:31→20:34)
[2022-10-13] MEDS ORDERED: Zofran 4 MG/2 ML VIAL ONE (15:31)
[2022-10-13] MEDS ORDERED: Hydromorphone 1 mg/ml Injection ONE ×2 (15:31→18:16)
[2022-10-13 15:39] LABS: Absolute Neutrophil Ct (ANC) 5.41 x10^3/uL (1.4-6.9); Basophil (Absolute #) 0.08 x10^3/uL (0-0.4); Eosinophil % 1.3 % (0.00-5.0); Eosinophil (Absolute #) 0.11 x10^3/uL (0-0.5); Hematocrit 46.8 % (42-50); Hemoglobin 15.8 g/dL (12.5-18.0); Lymphocyte (Absolute #) 2.45 x10^3/uL (1.0-4.6); Lymphocytes % 28.9 % (24.0-44.0); Mean Cell Volume 86.3 fL (78-100); Mean Corpuscular Hemoglobin 29.2 pg (26-32); Mean Corpuscular Hgb Concent. 33.8 g/dL (32-36); Monocyte (Absolute #) 0.43 x10^3/uL (0.0-1.3); Monocytes % 5.1 % (0.0-12.0); Neutrophil % 63.7 % (36.0-66.0); Platelet Count 422 x10^3/uL (150-450); Red Blood Count 5.42 x10^6/uL (4.1-5.6); Red Cell Distribution Width 12.3 % (11.5-14.0); White Blood Count 8.5 x10^3/uL (4.0-10.5)
[2022-10-13 15:49] LABS: ALBUMIN 4.4 g/dL (3.5-5.0); BILIRUBIN,TOTAL 0.4 mg/dL (0.2-1.3); Direct Bilirubin 0.3 mg/dL (0.0-0.4); Total Protein 8.5 g/dL (6.3-8.2)
--- NOTE | 2022-10-13 16:26 | XRAY ---
Indication: Abdomen pain, nausea, and vomiting 3 days. Multiple contiguous axial images obtained through the abdomen and pelvis using 80 cc Isovue 370 contrast. Comparison: January 15, 2022 Lung bases are clear. Heart not enlarged. Noncontrasted stomach and bowel loops nonobstructed. Again normal appearing appendix with tiny appendicolith. Head/uncinate process and lesser degree body of appendix again demonstrates mild edema with peripancreatic stranding favoring pancreatitis. Adjacent to duodenitis presumed reactive. No free fluid/air. Mild diffuse fatty liver. Gallbladder distended without gallstones. Remaining spleen, adrenal glands, kidneys, ureters, bladder, and aorta are unremarkable. No pathologic retroperitoneal lymphadenopathy. Osseous structures intact. Impression: 1. Recurrent mild pancreatitis as detailed with adjacent reactive duodenitis. 2. New finding fatty liver.
--- NOTE | 2022-10-13 16:42 | ERPHSYRPT ---
- History of Present Illness Time Seen by Provider: 10/13/22 15:35 Historian: patient Exam Limitations: no limitations Patient Subjective Stated Complaint: pt states "I have this stomach pain for the past 2 days. I have pancreatitis and think it is the problem. I have been drinking heavy this weekend with the holidays." Triage Nursing Assessment: pt ambulated into the er; pt is axo x4; tearful; c/o abd pain; pt states 10/10 pain to abd; c/o N/V/D; abd is soft, tender; hyperactive bowel sounds in all quads; skin PDW; hypertensive Physician History: Patient is a 37-year-old male who presents with a complaint of abdominal pain which feels like a previous episode of pancreatitis. He was admitted here in January of last year with pancreatitis. He has continued to drink. In fact he drank alcohol 30 minutes prior to his arrival in the ER this evening he is also been vomiting several times. Timing/Duration: day(s) (3) Activities at Onset: other (Consume alcohol) Quality: cramping, throbbing Abdominal Pain Onset Location: epigastric Pain Radiation: back Allergies/Adverse Reactions: No Known Drug Allergies Allergy (Verified 10/13/22 15:12) Home Medications: Omeprazole Magnesium [Prilosec Otc] 20 mg PO DAILY 10/13/22 [History] Hx Tetanus, Diphtheria Vaccination/Date Given: Yes Hx Influenza Vaccination/Date Given: No Hx Pneumococcal Vaccination/Date Given: No Travel Risk - International Travel Have you traveled outside of the country in past 3 weeks: No - Coronavirus Screening Are you exhibiting any of the following symptoms?: Yes Symptoms: Vomiting/Diarrhea Close contact with a COVID-19 positive Pt in past 14-21 Days: No - Vaccine Status Have you recieved a Covid-19 vaccination: No - Review of Systems Constitutional: No Fever, No Chills Eyes: No Symptoms Ears, Nose, & Throat: No Symptoms Respiratory: No Cough, No Dyspnea Cardiac: No Chest Pain, No Edema, No Syncope Abdominal/Gastrointestinal: Abdominal Pain, Nausea, Vomiting, No Diarrhea Genitourinary Symptoms: No Dysuria Musculoskeletal: No Back Pain, No Neck Pain Skin: No Rash Neurological: No Dizziness, No Focal Weakness, No Sensory Changes Psychological: No Symptoms Endocrine: No Symptoms All Other Systems: Reviewed and Negative - Past Medical History Pertinent Past Medical History: Yes Neurological History: No Pertinent History ENT History: No Pertinent History Cardiac History: Hypertension Respiratory History: No Pertinent History Endocrine Medical History: No Pertinent History Musculoskeletal History: Fractures GI Medical History: GERD, Pancreatitis History: No Pertinent History Psycho-Social History: No Pertinent History Male Reproductive Disorders: No Pertinent History - Past Surgical History Past Surgical History: Yes Neuro Surgical History: No Pertinent History Cardiac: No Pertinent History Respiratory: No Pertinent History Gastrointestinal: No Pertinent History Genitourinary: No Pertinent History Musculoskeletal: Orthopedic Surgery Male Surgical History: No Pertinent History Other Surgical History: left fibula repair-plate and screws. left upper arm surgery - Social History Smoking Status: Former smoker Exposure to second hand smoke: Yes Drug Use: none Patient Lives Alone: No - Nursing Vital Signs Nursing Vital Signs: Initial Vital Signs Temperature 96.8 F 10/13/22 15:14 Pulse Rate 83 10/13/22 15:14 Respiratory Rate 20 10/13/22 15:14 Blood Pressure 178/123 10/13/22 15:14 O2 Sat by Pulse Oximetry 100 10/13/22 15:14 Pain Scale Pain Intensity 8 - Physical Exam General Appearance: moderate distress Eye Exam: PERRL/EOMI, eyes nml inspection Ears, Nose, Throat Exam: normal ENT inspection, pharynx normal, dry mucous membranes Neck Exam: normal inspection, non-tender, supple, full range of motion Respiratory Exam: normal breath sounds, lungs clear, No respiratory distress Cardiovascular Exam: regular rate/rhythm, normal heart sounds Gastrointestinal/Abdomen Exam: normal bowel sounds, tenderness (Epigastrium) Back Exam: normal inspection, normal range of motion, No CVA tenderness, No vertebral tenderness Extremity Exam: normal inspection, normal range of motion, pelvis stable Neurologic Exam: alert, oriented x 3, cooperative, normal mood/affect, nml cerebellar function, sensation nml, No motor deficits Skin Exam: normal color, warm, dry SpO2 Interpretation: normal SpO2: 100 O2 Delivery: Room Air - Course Nursing assessment & vital signs reviewed: Yes - CT Exams Abdomen/Pelvis CT Interpretation: Other (CT shows mild pancreatitis) Ordered Tests: Active Orders 24 hr Category Date Time Status IV Insertion STAT Care 10/13/22 15:25 Active ABDOMEN AND PELVIS W CONTRAST [CT] Stat Exams 10/13/22 16:11 Completed AMYLASE Stat Lab 10/13/22 15:15 Completed CBC W DIFF Stat Lab 10/13/22 15:15 Completed Hepatic Function Panel Stat Lab 10/13/22 15:15 Completed LIPASE Stat Lab 10/13/22 15:15 Completed Lactic Acid Stat Lab 10/13/22 15:35 Completed Medication Summary Discontinued Medications Generic Name Dose Route Start Last Admin Trade Name Freq PRN Reason Stop Dose Admin Hydromorphone HCl 1 mg 10/13/22 15:25 10/13/22 15:33 Hydromorphone 1 Mg/1ml Inj 1 Mg/Ml Syringe IV 10/13/22 15:26 1 mg STAT ONE Administration Hydromorphone HCl Confirm 10/13/22 15:31 Hydromorphone 1 Mg/1ml Inj 1 Mg/Ml Syringe Administered 10/13/22 15:32 Dose 1 mg .ROUTE .STK-MED ONE Sodium Chloride 1,000 mls @ 999 mls/hr 10/13/22 15:25 10/13/22 16:35 Sodium Chloride 0.9% 1000 Ml IV 10/13/22 16:25 Infused .Q1H1M STA Infusion Sodium Chloride Confirm 10/13/22 15:31 Sodium Chloride 0.9% 1000 Ml Administered 10/13/22 15:32 Dose 1,000 mls @ ud .ROUTE .STK-MED ONE Ondansetron HCl 4 mg 10/13/22 15:25 10/13/22 15:32 Ondansetron Hcl 4 Mg/2 Ml Vial IV 10/13/22 15:26 4 mg STAT ONE Administration Ondansetron HCl Confirm 10/13/22 15:31 Ondansetron Hcl 4 Mg/2 Ml Vial Administered 10/13/22 15:32 Dose 4 mg .ROUTE .STK-MED ONE Pantoprazole Sodium 40 mg 10/13/22 15:25 10/13/22 15:32 Pantoprazole 40 Mg Vial IV 10/13/22 15:26 40 mg STAT ONE Administration Pantoprazole Sodium Confirm 10/13/22 15:31 Pantoprazole 40 Mg Vial Administered 10/13/22 15:32 Dose 40 mg IV .STK-MED ONE Lab/Rad Data: Laboratory Result Diagrams 10/13/22 15:15 Laboratory Results 10/13/22 10/13/22 10/13/22 Range/Units 15:35 15:15 15:15 WBC 8.5 (4.0-10.5) x10^3/uL RBC 5.42 (4.1-5.6) x10^6/uL Hgb 15.8 (12.5-18.0) g/dL Hct 46.8 (42-50) % MCV 86.3 (78-100) fL MCH 29.2 (26-32) pg MCHC 33.8 (32-36) g/dL RDW 12.3 (11.5-14.0) % Plt Count 422 (150-450) x10^3/uL MPV 10.0 (7.5-11.0) fL Gran % 63.7 (36.0-66.0) % Immature Gran % (Auto) 0.1 (0.00-0.4) % Nucleat RBC Rel Count 0.0 (0.00-0.1) % Eos # (Auto) 0.11 (0-0.5) x10^3/uL Immature Gran # (Auto) 0.01 (0.00-0.03) x10^3u/L Absolute Lymphs (auto) 2.45 (1.0-4.6) x10^3/uL Absolute Monos (auto) 0.43 (0.0-1.3) x10^3/uL Absolute Nucleated RBC 0.00 (0.00-0.01) x10^3u/L Lymphocytes % 28.9 (24.0-44.0) % Monocytes % 5.1 (0.0-12.0) % Eosinophils % 1.3 (0.00-5.0) % Basophils % 0.9 (0.0-0.4) % Absolute Granulocytes 5.41 (1.4-6.9) x10^3/uL Basophils # 0.08 (0-0.4) x10^3/uL Lactic Acid 2.2 H (0.4-2.0) Total Bilirubin 0.40 (0.2-1.3) mg/dL Direct Bilirubin 0.3 (0.0-0.4) mg/dL AST 53 (17-59) U/L ALT 35 (0-50) U/L Alkaline Phosphatase 118 (38-126) U/L Serum Total Protein 8.5 H (6.3-8.2) g/dL Albumin 4.4 (3.5-5.0) g/dL Amylase 152 H (30-110) U/L Lipase 863 H (23-300) U/L - Progress Progress: unchanged - Departure Departure Disposition: Home Clinical Impression: Pancreatitis Condition: Fair Critical Care Time: No Referrals: DOCTOR,NO FAMILY [Primary Care Provider] - Follow up/PCP as directed
[2022-10-13] MEDS ORDERED: Sodium Chloride 0.9% 1000 ML 1,000 ML IV SCH (16:45)
[2022-10-13] MEDS ORDERED: Hydromorphone 1 mg/ml Injection IV PRN (16:47)
[2022-10-13] MEDS ORDERED: Zofran 4 MG/2 ML VIAL IV PRN (16:48)
[2022-10-13 17:41] LABS: INFLUENZA A NEGATIVE (NEGATIVE); INFLUENZA B NEGATIVE (NEGATIVE); RESPIRATORY SYNCTIAL VIRUS NEGATIVE (Negative); SARS-CoV-2 Xpert Express NEGATIVE (NEGATIVE)
[2022-10-13] MEDS ORDERED: Ativan 2 MG/1 ML VIAL IV PRN ×2 (17:47→22:37)
[2022-10-13] MEDS ORDERED: APRESOLINE 20 MG/ML INJ IV ONE (22:35)
[2022-10-13] MEDS: Hydromorphone 1 mg/ml Injection IV PRN (22:46)
[2022-10-13] MEDS: Ativan 2 MG/1 ML VIAL IV PRN (22:50)
[2022-10-14] MEDS: Hydromorphone 1 mg/ml Injection IV PRN ×3 (02:21→09:44)
[2022-10-14] MEDS: Sodium Chloride 0.9% 1000 ML 1,000 ML IV SCH ×4 (02:21→22:54)
[2022-10-14 05:36] LABS: Absolute Neutrophil Ct (ANC) 6.02 x10^3/uL (1.4-6.9); Basophil (Absolute #) 0.08 x10^3/uL (0-0.4); Eosinophil (Absolute #) 0.19 x10^3/uL (0-0.5); Hematocrit 43.3 % (42-50); Hemoglobin 14.5 g/dL (12.5-18.0); Lymphocytes % 25.6 % (24.0-44.0); Mean Cell Volume 87.1 fL (78-100); Mean Corpuscular Hemoglobin 29.2 pg (26-32); Mean Corpuscular Hgb Concent. 33.5 g/dL (32-36); Mean Platelet Volume 10.3 fL (7.5-11.0); Monocyte (Absolute #) 0.67 x10^3/uL (0.0-1.3); Monocytes % 7.1 % (0.0-12.0); Neutrophil % 64.2 % (36.0-66.0); Platelet Count 333 x10^3/uL (150-450); Red Blood Count 4.97 x10^6/uL (4.1-5.6); Red Cell Distribution Width 12.4 % (11.5-14.0); White Blood Count 9.4 x10^3/uL (4.0-10.5)
[2022-10-14] MEDS: Ativan 2 MG/1 ML VIAL IV PRN ×3 (06:17→22:52)
[2022-10-14 06:46] LABS: ALBUMIN 3.9 g/dL (3.5-5.0); ALKALINE PHOSPHATASE 109 U/L (38-126); AMYLASE 130 U/L (30-110); ANION GAP 12.3 MEQ/L (5-15); BLOOD UREA NITROGEN 6 mg/dL (9-20); CHLORIDE 105 mmol/L (98-107); Calcium 7.3 mg/dL (8.4-10.2); Carbon Dioxide 27 mmol/L (22-30); EST GLOMERULAR FILTRATION RATE > 60.0 ML/MIN; Glucose 83 mg/dL (74-106); LIPASE 743 U/L (23-300); SGOT/AST 43 U/L (17-59); SGPT/ALT 28 U/L (0-50); SODIUM 141 mmol/L (137-145); Total Protein 7.5 g/dL (6.3-8.2)
[2022-10-14] MEDS ORDERED: APRESOLINE 20 MG/ML INJ IV ONE (08:28)
[2022-10-14] MEDS: Zofran 4 MG/2 ML VIAL IV PRN ×2 (09:59→20:29)
[2022-10-14] MEDS ORDERED: Zofran 4 MG/2 ML VIAL IV PRN (10:01)
[2022-10-14] MEDS ORDERED: DILAUDID 1 MG/1ML PCA SYRINGE IV PRN (11:07)
[2022-10-14] MEDS ORDERED: Sodium Chloride 0.9% 1000 ML 1,000 ML IV STA (12:53)
--- NOTE | 2022-10-14 13:16 | PCM.HP ---
History of Present Illness - Chief Complaint Chief Complaint: pancreatitis History of Present Illness: is a 37 year old male with no local MD and hx pancreatitis and HTN who was admitted through ER with pancreatitis. His lipase was 863. CT showed pancreatitis with reactive duodenitis. Pt was drinking "fake" watermelon favored beer. He drinks about 1/2 pint/day but did attend some parties over . He is having pain on the lower abd that radiates to upper abd and chest, 10/10. Having nausea and vomiting, no blood in the vomitus and no diarrhea. No fever. Had been just eating soups and crackers at home. - Review of Systems Cardiac: Edema (of toes for the past 1 yr) Abdominal/Gastrointestinal: Abdominal Pain, Nausea, Vomiting Musculoskeletal: Injury (hurt his tailbone 2d ago) Neurological: Dizziness (here in hosp; resolved) Medications & Allergies Home Medications: Home Medication List Omeprazole Magnesium [Prilosec Otc] 20 mg PO DAILY 10/13/22 [History Confirmed 10/13/22] Allergies/Adverse Reactions: Allergies Allergy/AdvReac Type Severity Reaction Status Date / Time No Known Drug Allergies Allergy Verified 10/13/22 15:12 - Past Medical History Past Medical History: Yes Neurological History: No Pertinent History ENT History: No Pertinent History Cardiac History: Hypertension Respiratory History: No Pertinent History Endocrine Medical History: No Pertinent History Musculoskelatal History: Fractures GI Medical History: GERD, Pancreatitis History: No Pertinent History Pyscho-Social History: No Pertinent History Male Reproductive Disorders: No Pertinent History - Past Surgical History Past Surgical History: Yes Neuro Surgical History: No Pertinent History Cardiac History: No Pertinent History Respiratory Surgery: No Pertinent History GI Surgical History: No Pertinent History Genitourinary Surgical Hx: No Pertinent History Musculskeletal Surgical Hx: Orthopedic Surgery Male Surgical History: No Pertinent History Other Surgical History: left fibula repair-plate and screws. left upper arm surgery - Social History Smoking Status: Never smoker Exposure to second hand smoke: Yes Alcohol: Heavy Drug Use: none - Physical Exam Vital Signs: Vital Signs - 24 hr Temp Pulse Resp BP Pulse Ox 10/14/22 12:12 99.8 F 122 H 16 181/108 95 10/14/22 09:42 124 H 173/97 10/14/22 07:43 97.5 F 98 H 15 187/111 93 L 10/14/22 04:00 98.0 F 83 16 174/105 98 10/14/22 02:02 73 174/100 10/13/22 23:53 98.0 F 82 18 186/118 98 10/13/22 21:30 97.8 F 75 20 209/125 98 10/13/22 20:12 81 153/113 98 10/13/22 18:00 81 193/121 100 10/13/22 16:54 80 181/125 100 10/13/22 16:42 100 10/13/22 16:09 84 20 179/118 100 10/13/22 15:14 96.8 F 83 20 178/123 100 General Appearance: mild distress, alert Neurologic Exam: oriented x 3, cooperative Eye Exam: eyes nml inspection Ears, Nose, Throat Exam: moist mucous membranes Neck Exam: normal inspection Respiratory Exam: normal breath sounds, lungs clear, No crackles/rales, No rhonchi, No wheezing Cardiovascular Exam: regular rate/rhythm, normal heart sounds, No murmur Gastrointestinal/Abdomen Exam: soft, normal bowel sounds, tenderness (epigastrum and suprapubic area), distention (mild), No mass, No guarding, No rebound Back Exam: normal inspection, No rash Results - Labs Lab/Micro Results: Lab Results-Last 24 Hours 10/13/22 10/13/22 10/13/22 Range/Units 15:15 15:15 15:35 WBC 8.5 (4.0-10.5) x10^3/uL RBC 5.42 (4.1-5.6) x10^6/uL Hgb 15.8 (12.5-18.0) g/dL Hct 46.8 (42-50) % MCV 86.3 (78-100) fL MCH 29.2 (26-32) pg MCHC 33.8 (32-36) g/dL RDW 12.3 (11.5-14.0) % Plt Count 422 (150-450) x10^3/uL MPV 10.0 (7.5-11.0) fL Gran % 63.7 (36.0-66.0) % Immature Gran % (Auto) 0.1 (0.00-0.4) % Nucleat RBC Rel Count 0.0 (0.00-0.1) % Eos # (Auto) 0.11 (0-0.5) x10^3/uL Immature Gran # (Auto) 0.01 (0.00-0.03) x10^3u/L Absolute Lymphs (auto) 2.45 (1.0-4.6) x10^3/uL Absolute Monos (auto) 0.43 (0.0-1.3) x10^3/uL Absolute Nucleated RBC 0.00 (0.00-0.01) x10^3u/L Lymphocytes % 28.9 (24.0-44.0) % Monocytes % 5.1 (0.0-12.0) % Eosinophils % 1.3 (0.00-5.0) % Basophils % 0.9 (0.0-0.4) % Absolute Granulocytes 5.41 (1.4-6.9) x10^3/uL Basophils # 0.08 (0-0.4) x10^3/uL Sodium (137-145) mmol/L Potassium (3.5-5.1) mmol/L Chloride (98-107) mmol/L Carbon Dioxide (22-30) mmol/L Anion Gap (5-15) MEQ/L BUN (9-20) mg/dL Creatinine (0.66-1.25) mg/dL Estimated GFR ML/MIN Glucose (74-106) mg/dL Lactic Acid 2.2 H (0.4-2.0) Calcium (8.4-10.2) mg/dL Magnesium (1.6-2.3) mg/dL Total Bilirubin 0.40 (0.2-1.3) mg/dL Direct Bilirubin 0.3 (0.0-0.4) mg/dL AST 53 (17-59) U/L ALT 35 (0-50) U/L Alkaline Phosphatase 118 (38-126) U/L Serum Total Protein 8.5 H (6.3-8.2) g/dL Albumin 4.4 (3.5-5.0) g/dL Amylase 152 H (30-110) U/L Lipase 863 H (23-300) U/L Influenza Type A Ag (NEGATIVE) Influenza Type B Ag (NEGATIVE) RSV (PCR) (Negative) SARS-CoV-2 (PCR) (NEGATIVE) 01/03/23 01/04/23 01/04/23 Range/Units 17:05 04:50 04:50 WBC 9.4 (4.0-10.5) x10^3/uL RBC 4.97 (4.1-5.6) x10^6/uL Hgb 14.5 (12.5-18.0) g/dL Hct 43.3 (42-50) % MCV 87.1 (78-100) fL MCH 29.2 (26-32) pg MCHC 33.5 (32-36) g/dL RDW 12.4 (11.5-14.0) % Plt Count 333 (150-450) x10^3/uL MPV 10.3 (7.5-11.0) fL Gran % 64.2 (36.0-66.0) % Immature Gran % (Auto) 0.2 (0.00-0.4) % Nucleat RBC Rel Count 0.0 (0.00-0.1) % Eos # (Auto) 0.19 (0-0.5) x10^3/uL Immature Gran # (Auto) 0.02 (0.00-0.03) x10^3u/L Absolute Lymphs (auto) 2.40 (1.0-4.6) x10^3/uL Absolute Monos (auto) 0.67 (0.0-1.3) x10^3/uL Absolute Nucleated RBC 0.00 (0.00-0.01) x10^3u/L Lymphocytes % 25.6 (24.0-44.0) % Monocytes % 7.1 (0.0-12.0) % Eosinophils % 2.0 (0.00-5.0) % Basophils % 0.9 (0.0-0.4) % Absolute Granulocytes 6.02 (1.4-6.9) x10^3/uL Basophils # 0.08 (0-0.4) x10^3/uL Sodium 141 (137-145) mmol/L Potassium 3.0 L* (3.5-5.1) mmol/L Chloride 105 (98-107) mmol/L Carbon Dioxide 27 (22-30) mmol/L Anion Gap 12.3 (5-15) MEQ/L BUN 6 L (9-20) mg/dL Creatinine 0.60 L (0.66-1.25) mg/dL Estimated GFR > 60.0 ML/MIN Glucose 83 (74-106) mg/dL Lactic Acid (0.4-2.0) Calcium 7.3 L (8.4-10.2) mg/dL Magnesium (1.6-2.3) mg/dL Total Bilirubin 0.50 (0.2-1.3) mg/dL Direct Bilirubin (0.0-0.4) mg/dL AST 43 (17-59) U/L ALT 28 (0-50) U/L Alkaline Phosphatase 109 (38-126) U/L Serum Total Protein 7.5 (6.3-8.2) g/dL Albumin 3.9 (3.5-5.0) g/dL Amylase 130 H (30-110) U/L Lipase 743 H (23-300) U/L Influenza Type A Ag NEGATIVE (NEGATIVE) Influenza Type B Ag NEGATIVE (NEGATIVE) RSV (PCR) NEGATIVE (Negative) SARS-CoV-2 (PCR) NEGATIVE (NEGATIVE) 10/14/22 Range/Units 06:56 WBC (4.0-10.5) x10^3/uL RBC (4.1-5.6) x10^6/uL Hgb (12.5-18.0) g/dL Hct (42-50) % MCV (78-100) fL MCH (26-32) pg MCHC (32-36) g/dL RDW (11.5-14.0) % Plt Count (150-450) x10^3/uL MPV (7.5-11.0) fL Gran % (36.0-66.0) % Immature Gran % (Auto) (0.00-0.4) % Nucleat RBC Rel Count (0.00-0.1) % Eos # (Auto) (0-0.5) x10^3/uL Immature Gran # (Auto) (0.00-0.03) x10^3u/L Absolute Lymphs (auto) (1.0-4.6) x10^3/uL Absolute Monos (auto) (0.0-1.3) x10^3/uL Absolute Nucleated RBC (0.00-0.01) x10^3u/L Lymphocytes % (24.0-44.0) % Monocytes % (0.0-12.0) % Eosinophils % (0.00-5.0) % Basophils % (0.0-0.4) % Absolute Granulocytes (1.4-6.9) x10^3/uL Basophils # (0-0.4) x10^3/uL Sodium (137-145) mmol/L Potassium (3.5-5.1) mmol/L Chloride (98-107) mmol/L Carbon Dioxide (22-30) mmol/L Anion Gap (5-15) MEQ/L BUN (9-20) mg/dL Creatinine (0.66-1.25) mg/dL Estimated GFR ML/MIN Glucose (74-106) mg/dL Lactic Acid (0.4-2.0) Calcium (8.4-10.2) mg/dL Magnesium 1.8 (1.6-2.3) mg/dL Total Bilirubin (0.2-1.3) mg/dL Direct Bilirubin (0.0-0.4) mg/dL AST (17-59) U/L ALT (0-50) U/L Alkaline Phosphatase (38-126) U/L Serum Total Protein (6.3-8.2) g/dL Albumin (3.5-5.0) g/dL Amylase (30-110) U/L Lipase (23-300) U/L Influenza Type A Ag (NEGATIVE) Influenza Type B Ag (NEGATIVE) RSV (PCR) (Negative) SARS-CoV-2 (PCR) (NEGATIVE) - Radiology Impressions Radiology Exams & Impressions: Radiology Procedures Category Date Time Status ABDOMEN AND PELVIS W CONTRAST [CT] Stat Exams 10/13/22 16:11 Completed Assessment/Plan (1) Pancreatitis Current Visit: Yes Status: Acute Qualifiers: Chronicity: acute Pancreatitis type: alcohol induced Acute pancreatitis complication: no infection or necrosis Qualified Code(s): K85.20 - Alcohol induced acute pancreatitis without necrosis or infection Assessment & Plan: Lipase minimally decreased; with some assoc duodenitis. Will give some more fluid bolus. okay CLD if tolerated. Pt should get out of bed as tolerated. On IV pain medicine, however (starting SYSTEM DEVELOPMENT MANAGER). Code(s): K85.90 - ACUTE PANCREATITIS WITHOUT NECROSIS OR INFECTION, UNSP (2) HTN (hypertension) Current Visit: Yes Status: Chronic Qualifiers: Hypertension type: primary hypertension Qualified Code(s): I10 - Essential (primary) hypertension Assessment & Plan: not taking his meds because he was out - lisinopril and another med, he can't remember the name. Code(s): I10 - ESSENTIAL (PRIMARY) HYPERTENSION (3) Alcohol abuse Current Visit: Yes Status: Chronic Assessment & Plan: Advised he can not drink ANY alcohol safely. Code(s): F10.10 - ALCOHOL ABUSE, UNCOMPLICATED
[2022-10-14] MEDS: PROTONIX 40 MG IV IV SCH (13:46)
[2022-10-14] MEDS: NICODERM CQ 14 MG TOP SCH (13:46)
[2022-10-14] MEDS: Klor Con PO SCH ×4 (14:49→20:20)
[2022-10-14] MEDS: TYLENOL 325 MG PO PRN ×2 (17:29→23:36)
[2022-10-14] MEDS: APRESOLINE 20 MG/ML INJ IV PRN ×2 (17:31→20:35)
[2022-10-15] MEDS: Sodium Chloride 0.9% 1000 ML 1,000 ML IV SCH (04:01)
[2022-10-15 05:24] LABS: Absolute Neutrophil Ct (ANC) 4.31 x10^3/uL (1.4-6.9); Basophil (Absolute #) 0.04 x10^3/uL (0-0.4); Eosinophil % 1.4 % (0.00-5.0); Eosinophil (Absolute #) 0.08 x10^3/uL (0-0.5); Hematocrit 41.1 % (42-50); Hemoglobin 13.5 g/dL (12.5-18.0); Lymphocyte (Absolute #) 1.01 x10^3/uL (1.0-4.6); Lymphocytes % 17.2 % (24.0-44.0); Mean Cell Volume 87.4 fL (78-100); Mean Corpuscular Hemoglobin 28.7 pg (26-32); Mean Corpuscular Hgb Concent. 32.8 g/dL (32-36); Monocyte (Absolute #) 0.42 x10^3/uL (0.0-1.3); Monocytes % 7.1 % (0.0-12.0); Neutrophil % 73.3 % (36.0-66.0); Platelet Count 181 x10^3/uL (150-450); Red Cell Distribution Width 12.1 % (11.5-14.0); White Blood Count 5.9 x10^3/uL (4.0-10.5)
[2022-10-15 05:51] LABS: ANION GAP 10.1 MEQ/L (5-15); BLOOD UREA NITROGEN 3 mg/dL (9-20); CHLORIDE 103 mmol/L (98-107); Calcium 8.6 mg/dL (8.4-10.2); Carbon Dioxide 24 mmol/L (22-30); Creatinine 1 0.55 mg/dL (0.66-1.25); EST GLOMERULAR FILTRATION RATE > 60.0 ML/MIN; Glucose 115 mg/dL (74-106); MAGNESIUM 1.6 mg/dL (1.6-2.3); Potassium 4.1 mmol/L (3.5-5.1); SODIUM 133 mmol/L (137-145)
[2022-10-15] MEDS: TYLENOL 325 MG PO PRN (06:25)
[2022-10-15] MEDS: Ativan 2 MG/1 ML VIAL IV PRN (06:26)
[2022-10-15] MEDS: APRESOLINE 20 MG/ML INJ IV PRN (06:28)
[2022-10-15] MEDS: NORVASC 5 MG PO SCH ×2 (07:52→09:35)
[2022-10-15 08:04] VITALS: O2SAT 94
[2022-10-15] MEDS ORDERED: Hydromorphone 1 mg/ml Injection IV ONE (09:13)
[2022-10-15] MEDS: PROTONIX 40 MG IV IV SCH (09:34)
[2022-10-15] MEDS: NICODERM CQ 14 MG TOP SCH (09:36)
[2022-10-15 10:17] VITALS: BP 176/101; PULSE 131
[2022-10-15] MEDS ORDERED: Toprol-Xl 25MG Tablets PO SCH (10:20)
--- NOTE | 2022-10-15 13:06 | PCM.DS ---
Discharge Summary Date of Admission: 10/13/22 21:13 Admitting Physician: JANA OROZCO Primary Care Provider: NO FAMILY DOCTOR Allergies Allergies No Known Drug Allergies Allergy (Verified 10/13/22 15:12) Hospital Summary - Hospital Course Hospital Course: Pt is a 37 yo male with no local MD and hx HTN who was admitted through ER with pancreatitis. Lipase > 700. CT nonacute, but showed pancreatitis and some duodenitis. He was treated with dilaudid and changed to PAVER OPERATOR yesterday with intermittent relief. Increased PAVER OPERATOR today; he was tolerating some CLD. Sodium intiially nl but today 133. Potassium fine, 4.1. BS 115. I told the pt there was no safe amount of alcohol for him to drink, and discharge planning discussed AA meetings. Late this morning he abruptly told the RN that he needed to leave to attend to some things at home (there was no sign of anger, no altercation etc) so he was leaving. - Vitals & Intake/Output Vital Signs: Vital Signs Temperature 98.1 F 10/15/22 08:03 Pulse Rate 131 H 10/15/22 10:17 Respiratory Rate 17 10/15/22 08:03 Blood Pressure 176/101 10/15/22 10:17 O2 Sat by Pulse Oximetry 94 L 10/15/22 08:03 Intake & Output: Intake & Output 10/13/22 10/14/22 10/15/22 10/16/22 11:59 11:59 11:59 11:59 Intake Total 2911 3707 Balance 2911 3707 Weight 66.4 kg - Lab Result Diagrams: 10/15/22 05:27 10/15/22 05:27 Lab Results-Last 24 Hrs: Lab Results-Last 24 Hours 10/14/22 10/14/22 10/15/22 Range/Units 19:28 23:34 05:00 WBC (4.0-10.5) x10^3/uL RBC (4.1-5.6) x10^6/uL Hgb (12.5-18.0) g/dL Hct (42-50) % MCV (78-100) fL MCH (26-32) pg MCHC (32-36) g/dL RDW (11.5-14.0) % Plt Count (150-450) x10^3/uL MPV (7.5-11.0) fL Gran % (36.0-66.0) % Immature Gran % (Auto) (0.00-0.4) % Nucleat RBC Rel Count (0.00-0.1) % Eos # (Auto) (0-0.5) x10^3/uL Immature Gran # (Auto) (0.00-0.03) x10^3u/L Absolute Lymphs (auto) (1.0-4.6) x10^3/uL Absolute Monos (auto) (0.0-1.3) x10^3/uL Absolute Nucleated RBC (0.00-0.01) x10^3u/L Lymphocytes % (24.0-44.0) % Monocytes % (0.0-12.0) % Eosinophils % (0.00-5.0) % Basophils % (0.0-0.4) % Absolute Granulocytes (1.4-6.9) x10^3/uL Basophils # (0-0.4) x10^3/uL Sodium (137-145) mmol/L Potassium 4.1 D 3.9 (3.5-5.1) mmol/L Chloride (98-107) mmol/L Carbon Dioxide (22-30) mmol/L Anion Gap (5-15) MEQ/L BUN (9-20) mg/dL Creatinine (0.66-1.25) mg/dL Estimated GFR ML/MIN Glucose (74-106) mg/dL Calcium (8.4-10.2) mg/dL Magnesium (1.6-2.3) mg/dL Lipase 292 (23-300) U/L Procalcitonin (0.030-0.080) ng/mL 10/15/22 10/15/22 10/15/22 Range/Units 05:00 05:27 05:27 WBC 5.9 (4.0-10.5) x10^3/uL RBC 4.70 (4.1-5.6) x10^6/uL Hgb 13.5 (12.5-18.0) g/dL Hct 41.1 L (42-50) % MCV 87.4 (78-100) fL MCH 28.7 (26-32) pg MCHC 32.8 (32-36) g/dL RDW 12.1 (11.5-14.0) % Plt Count 181 D (150-450) x10^3/uL MPV 10.0 (7.5-11.0) fL Gran % 73.3 H (36.0-66.0) % Immature Gran % (Auto) 0.3 (0.00-0.4) % Nucleat RBC Rel Count 0.0 (0.00-0.1) % Eos # (Auto) 0.08 (0-0.5) x10^3/uL Immature Gran # (Auto) 0.02 (0.00-0.03) x10^3u/L Absolute Lymphs (auto) 1.01 (1.0-4.6) x10^3/uL Absolute Monos (auto) 0.42 (0.0-1.3) x10^3/uL Absolute Nucleated RBC 0.00 (0.00-0.01) x10^3u/L Lymphocytes % 17.2 L (24.0-44.0) % Monocytes % 7.1 (0.0-12.0) % Eosinophils % 1.4 (0.00-5.0) % Basophils % 0.7 (0.0-0.4) % Absolute Granulocytes 4.31 (1.4-6.9) x10^3/uL Basophils # 0.04 (0-0.4) x10^3/uL Sodium 133 L D (137-145) mmol/L Potassium 4.1 (3.5-5.1) mmol/L Chloride 103 (98-107) mmol/L Carbon Dioxide 24 (22-30) mmol/L Anion Gap 10.1 (5-15) MEQ/L BUN 3 L (9-20) mg/dL Creatinine 0.55 L (0.66-1.25) mg/dL Estimated GFR > 60.0 ML/MIN Glucose 115 H (74-106) mg/dL Calcium 8.6 D (8.4-10.2) mg/dL Magnesium 1.6 (1.6-2.3) mg/dL Lipase (23-300) U/L Procalcitonin 0.072 (0.030-0.080) ng/mL - Radiology Exams Ordered Rad Exams-Entire Visit: Radiology Procedures Category Date Time Status ABDOMEN AND PELVIS W CONTRAST [CT] Stat Exams 10/13/22 16:11 Completed Discharge Exam General Appearance: no apparent distress, alert Neurologic Exam: oriented x 3, cooperative Eye Exam: eyes nml inspection Ears, Nose, Throat Exam: moist mucous membranes Neck Exam: normal inspection Respiratory Exam: normal breath sounds, lungs clear, No crackles/rales, No rhonchi, No wheezing Cardiovascular Exam: regular rate/rhythm, normal heart sounds, No murmur Gastrointestinal/Abdomen Exam: soft, normal bowel sounds, tenderness (epigastrum and LLQ), No distention, No mass, No guarding, No rebound Back Exam: normal inspection, No rash Extremity Exam: normal inspection, No pedal edema, No swelling Final Diagnosis/Problem List - Final Discharge Diagnosis/Problem (1) Pancreatitis Current Visit: Yes Status: Acute Assessment & Plan: Was on IV fluids, CLD. Pt has left AMA. Lipase was down to normal today, so if pain is controlled off IV pain meds, would have been ok to discharge the pt at any rate. Code(s): K85.90 - ACUTE PANCREATITIS WITHOUT NECROSIS OR INFECTION, UNSP (2) HTN (hypertension) Current Visit: Yes Status: Chronic Assessment & Plan: started on po lisinopril and metoprolol (10mg and 25mg respectively) - will go ahead and send out for pt. Code(s): I10 - ESSENTIAL (PRIMARY) HYPERTENSION (3) Alcohol abuse Current Visit: Yes Status: Chronic Code(s): F10.10 - ALCOHOL ABUSE, UNCOMPLICATED - Discharge Disposition: Against Medical Advice Condition: Stable Prescriptions: New Nicotine 14 mg [Nicoderm Cq 14 mg] 14 mg TOP Q24H10 #30 patch Amlodipine Besylate 5 mg [Norvasc 5 mg] 5 mg PO QAM #30 tablet Metoprolol Succinate 25 mg Xl* [Toprol-Xl 25MG Tablets] 25 mg PO DAILY #30 tablet Continue Omeprazole Magnesium [Prilosec Otc] 20 mg PO DAILY #30 tablet Follow up with: DOCTOR,NO FAMILY [Primary Care Provider] -
== END 2022-10-15 11:47 | disposition left against medical advice (07) ==
LOC: ED 15:08 → MED SURG 21:13
PROVIDERS: ADMIT Family Medicine; ATTEND Family Medicine
DX: K85.90 Acute pancreatitis without necrosis or infection, unspecified (principal); I10 Essential (primary) hypertension; F10.10 Alcohol abuse, uncomplicated; Z79.899 Other long term (current) drug therapy; Z20.828 Contact with and (suspected) exposure to other viral communicable diseases
CPT/HCPCS: 0241U; 36000; 36415; 74177; 80048; 80053; 80076; 82150; 83605; 83690; 83735; 84132; 84145; 85025; 93268; 96360; 96361; 96374; 96375; 96376; 99285; G0378; J0360; J1170; J2060; J2405; A9270-GY